=== PATIENT | male | born 1975 | race Caucasian/White ===

== ENCOUNTER 2018-03-25 16:47 | Observation (INO) | payer SELFPAY ==
[~2018-03-25] VITALS: Ht 172.7 cm; Wt 90.2 kg
[2018-03-25] MEDS ORDERED: MORPHINE 4 MG/ML 1ML VIAL/SYRINGE (J2270) IV ONE (17:45)
--- NOTE | 2018-03-25 18:10 | REP ---
Clinical: Trauma. Technique: AP and lateral views of the right forearm. Findings: Transverse fractures through the radial and ulnar shafts with foreshortening and 3 cm displaced midshaft fracture fragment is identified along with overlying soft tissue swelling. Impression: Comminuted fracture displacement of the mid radial and ulnar shafts. Electronically Signed by Ankit Daniels MD 03/25/2018 06:02 P
[2018-03-25 18:41] LABS: BASO % 0.3 % (0.0-1.0); EOS # 0.1 10^3/uL (0.0-0.50); EOS % 0.7 % (0.0-3.0); HEMATOCRIT 41.5 % (42.0-52.0); HEMOGLOBIN 14.1 g/dl (13.5-17.5); LYMPH # 1.5 10^3/uL (1.5-4.5); LYMPH % 12.3 % (24.0-44.0); MEAN CORPUSCULAR HEMOGLOBIN 28.5 pg (27.0-33.0); MEAN CORPUSCULAR VOLUME 83.8 fl (80.0-96.0); MONO # 1.1 10^3/uL (0.0-0.8); MONO % 8.8 % (0.0-5.0); NEUTROPHILS # 9.5 10^3/uL (1.8-7.7); NEUTROPHILS % 77.7 % (36.0-66.0); PLATELET COUNT, AUTOMATED 217 10^3/uL (150-450); RED BLOOD COUNT 4.95 10^6/uL (4.30-6.10); WHITE BLOOD COUNT 12.2 10^3/uL (4.0-10.0)
[2018-03-25 19:06] LABS: BLOOD UREA NITROGEN 22 MG/DL (7-18); CALCIUM LEVEL 8.7 MG/DL (8.5-10.1); CARBON DIOXIDE LEVEL 28 MEQ/L (21-32); CHLORIDE LEVEL 105 MEQ/L (98-107); GLOMERULAR FILTRATION RATE > 60.0 (>60); GLUCOSE, FASTING 104 MG/DL (70-100); SODIUM LEVEL 139 MEQ/L (136-145)
[2018-03-25] MEDS ORDERED: ONDANSETRON 4MG/2ML VIAL (J2405) IV PRN (20:15)
[2018-03-25] MEDS ORDERED: PERCOCET 5MG/325MG TAB PO PRN (20:15)
[2018-03-25] MEDS ORDERED: ACETAMINOPHEN TAB 650MG DOSE (2X325MG) PO PRN (20:15)
[2018-03-25] MEDS: PERCOCET 5MG/325MG TAB PO PRN (22:29)
[2018-03-25 23:03] VITALS: BP_SYST 116; BP_SYST 127; BP_DIAS 62; BP_DIAS 64
[2018-03-26] MEDS: PERCOCET 5MG/325MG TAB PO PRN (05:15)
[2018-03-26 05:20] VITALS: BP 132/62
[2018-03-26] MEDS ORDERED: PERC5TAB12 PO (06:31)
[2018-03-26] MEDS ORDERED: ceFAZolin 2 GM/D5W 50 ML IV BAG (J0690 PER 500MG) As Ordered ONE (08:12)
[2018-03-26] MEDS ORDERED: BUPIVACAINE/EPIN 0.5% 30 ML VIAL As Ordered ONE (11:20)
[2018-03-26] MEDS ORDERED: KETOROLAC 30 MG/ML VIAL (J1885) As Ordered ONE (11:56)
[2018-03-26] MEDS ORDERED: KETOROLAC 30 MG/ML VIAL (J1885) IV PRN (12:00)
[2018-03-26] MEDS ORDERED: PERCOCET 5MG/325MG TAB PO PRN ×3 (12:00→12:15)
[2018-03-26] MEDS ORDERED: METOCLOPRAMIDE INJ 10MG/2ML VIAL (J2765) IV PRN (12:00)
[2018-03-26] MEDS ORDERED: fentaNYL 100 MCG/2 ML INJECTION (J3010) IV PRN (12:00)
[2018-03-26] MEDS ORDERED: ONDANSETRON 4MG/2ML VIAL (J2405) IV PRN (12:00)
[2018-03-26] MEDS ORDERED: LR 1,000 ML IV SCH (12:00)
[2018-03-26] MEDS ORDERED: fentaNYL 100 MCG/2 ML INJECTION (J3010) As Ordered ONE (12:06)
[2018-03-26] MEDS ORDERED: ACETAMINOPHEN TAB 650MG DOSE (2X325MG) PO PRN (12:15)
[2018-03-26] MEDS ORDERED: PERCOCET 5MG/325MG TAB As Ordered ONE ×2 (12:22→12:30)
[2018-03-26] MEDS ORDERED: ONDANSETRON 4MG/2ML VIAL (J2405) As Ordered ONE (12:22)
--- NOTE | 2018-03-26 12:25 | REP ---
Clinical: Postoperative assessment. Technique: AP and lateral views of the right forearm. Findings: The patient is status post satisfactory open reduction and fixation for radial and ulnar shaft fractures. Small fracture fragment from the radial shaft is identified in the interosseous space. Overlying postsurgical changes noted. Impression: Open reduction and fixation for radial and ulnar diaphyseal fractures. Electronically Signed by Ankit Daniels MD 03/26/2018 12:16 P
[2018-03-26 12:45] VITALS: BP 128/71
[2018-03-26 13:15] VITALS: BP 129/74
[2018-03-26 14:15] VITALS: BP 119/59
--- NOTE | 2018-03-26 14:28 | IPNPDOC ---
Date Seen The patient was seen on 03/26/18. Progress Note Ortho post op compartment check Patient is a 42 y/o male s/p R both bone forearm ORIF earlier today. Patient examined in recovery area. States pain is well controlled on oral medications. Mild subjective numbness in fingertips but states feels "much better" than just prior to surgery. Focused exam of RUE demonstrates motor function intact in all distributions. No pain with passive stretch of fingers. Brisk capillary refill to all digits. A/P: 42 y/o male s/p ORIF R forearm doing well -Compartment exam benign -Patient may be discharged to home -Return precautions given -all questions answered VS, I&O, 24H, Fishbone Vital Signs/I&O Vital Signs Date Time Temp Pulse Resp B/P (MAP) Pulse Ox O2 Delivery O2 Flow Rate FiO2 03/26/18 13:15 16 03/26/18 13:15 98.4 61 129/74 (92) 93 Room Air I&O- Last 24 Hours up to 6 AM 03/26/18 05:59 Intake Total 270 ml Output Total 350 ml Balance -80 ml Laboratory Data 24H LABS Laboratory Tests 2 03/25/18 18:29: Immature Granulocyte % (Auto) 0.2, White Blood Count 12.2H, Red Blood Count 4.95, Hemoglobin 14.1, Hematocrit 41.5L, Mean Corpuscular Volume 83.8, Mean Corpuscular Hemoglobin 28.5, Mean Corpuscular Hemoglobin Concent 34.0, Red Cell Distribution Width 12.4, Platelet Count 217, Neutrophils (%) (Auto) 77.7H, Lymphocytes (%) (Auto) 12.3L, Monocytes (%) (Auto) 8.8H, Eosinophils (%) (Auto) 0.7, Basophils (%) (Auto) 0.3, Neutrophils # (Auto) 9.5H, Lymphocytes # (Auto) 1 .5, Monocytes # (Auto) 1.1H, Eosinophils # (Auto) 0.1, Basophils # (Auto) 0.0, Nucleated Red Blood Cells % (auto) 0.0, Anion Gap 6L, Glomerular Filtration Rate > 60.0, Blood Urea Nitrogen 22H, Creatinine 0.90, Sodium Level 139, Potassium Level 4.0, Chloride Level 105, Carbon Dioxide Level 28, Calcium Level 8.7 CBC/BMP Laboratory Tests 03/25/18 18:29 Red Blood Count 4.95, Mean Corpuscular Volume 83.8, Mean Corpuscular Hemoglobin 28.5, Mean Corpuscular Hemoglobin Concent 34.0, Red Cell Distribution Width 12.4, Neutrophils (%) (Auto) 77.7 H, Lymphocytes (%) (Auto) 12.3 L, Monocytes (%) (Auto) 8.8 H, Eosinophils (%) (Auto) 0.7, Basophils (%) (Auto) 0.3, Neutrophils # (Auto) 9.5 H, Lymphocytes # (Auto) 1.5, Monocytes # (Auto) 1.1 H, Eosinophils # (Auto) 0.1, Basophils # (Auto) 0.0, Calcium Level 8.7 FRANCE WEINER MD Mar 26, 2018 14:28
--- NOTE | 2018-03-30 11:00 | RO ---
DATE OF PROCEDURE: 03/25/2018 PREOPERATIVE DIAGNOSIS: Right both bone forearm fracture. POSTOPERATIVE DIAGNOSIS: Right both bone forearm fracture. PROCEDURE PERFORMED: Right forearm open reduction internal fixation radius and ulna. SURGEON: Dr. Dakota Andrews JOINTER SUBMARINE CABLE: Eliel Shetty ANESTHESIA PROVIDER: Dr. Champagne ANESTHESIA: General endotracheal anesthesia and local. ANTIBIOTICS: 2 grams Ancef given within 1 hour of incision. TOTAL TOURNIQUET TIME: 120 minutes at 250 mmHg right brachium. IMPLANTS: Synthes eight hole 3.5 LC/DCP plate for ulna, nine hold 3.5 LC/DCP plate for the radius. See nursing anesthesia record for specific screw sizes. ESTIMATED BLOOD LOSS: 25 mL. MATERIALS SENT TO LAB: None. COMPLICATIONS: None. INDICATIONS FOR PROCEDURE: Zia Ramos is a 42-year-old [id number] male who was in a tree cutting up logs when a log feel directly onto his right arm resulting in immediate pain and deformity. He presented to the emergency department and was found to have a displaced mid shaft both bone forearm fracture. I discussed with the patient the nature of his injury, the risks, benefits, indications, alternatives, operative versus nonoperative management and recommended right forearm open reduction internal fixation. The patient expressed understanding and provided informed consent. I counseled that I will be his operating surgeon but his followup care will be conducted by [facility]. He expressed understanding with the arrangement and agreed with the plan. INTRAOPERATIVE FINDINGS: Achieved anatomic reduction of both the radius and ulna with full pronation and supination after fixation was completed. DESCRIPTION OF OPERATION: The patient was positively identified in preop holding and surgical site was marked. He was then brought to the operating room where he was placed under general endotracheal anesthesia. He was positioned supine on a regular table with the hand in extension and all bony prominences appropriately padded. Sequential compression device (SCD) were placed on the lower extremities for deep vein thrombosis (DVT) prophylaxis. He was prepped and draped in the usual sterile fashion. A final time-out was performed. I began with fixation of the ulna and made an incision directly along the subcutaneous border of the ulna and dissected through skin and subcutaneous tissue. I explored the interval between the ECU and FCU and I dissected sharply directly down onto the ulna clearing off periosteum volarly and then cleared off fracture hematoma and was able to obtain anatomic reduction. Given the transverse nature of the fracture, I then applied an 8-hole LC/DCP plate. I placed one screw in neutral mode followed by another screw in compression mode on the opposite side of the fracture to obtain compression at the fracture site. I used mini C-arm fluoroscopic imaging to confirm anatomic reduction of the fracture. I then placed two additional screws in neutral mode both proximally and distally. I then took fluoroscopic images of the ulna, which also showed mosque of the length of the radius. At this point, I then irrigated the ulnar wound with normal saline. I closed the subcutaneous layer with buried interrupted #2-0 Vicryl suture to approximate the skin edges and then proceeded to fixation of the radius. I made a 15 cm incision centered over the fracture site starting from the FCR tendon distally, extending proximally towards the radial tuberosity. I dissected through skin and subcutaneous tissue, identified the FCR tendon sheath and the interval between the FCR and the brachioradialis superficially. I identified the radial artery and dissected it. There were two leashes of vessels crossing over the field, which I tied off with #2-0 silk ties and then exploited the interval between the brachioradialis and pronator teres proximally. I dissected directly down onto the radial shaft distally through the pronator quadratus and proximally through the pronator teres. There was a large butterfly fragment. After clearing off all fracture hematoma and interposed soft tissue, I was able to achieve anatomic reduction of butterfly fragment to the distal fragment using pointed reduction tenaculum. I then placed a single 2 mm lag by technique screw. Then using pointed reduction tenaculum, I reduced this distal fragment to the proximal fragment. I was able to obtain anatomic reduction. Given the long oblique nature of the butterfly fragment, I was able to place an additional 2.0mm lag by technique screw connecting the distal and proximal fragments, achieving significant compression at the fracture site. At this point, I then applied a nine hole LC/DCP plate in neutralization mode with three screws proximal to the fracture and three screws distal to the fracture. I used intraoperative mini C-arm fluoroscopy to confirm anatomic reduction of the fracture and mosque of anatomic radial bow. I then took the forearm through range of motion, and the patient had full pronation and supination. After taking final fluoroscopic images, I then thoroughly irrigated the radial wound with normal saline. It was closed in layers with #2-0 Vicryl in a buried fashion for the subcutaneous layer followed by running #3-0 nylon in a mattress fashion for the skin. I then closed the ulnar wound with the additional a running #3-0 nylon suture in a mattress fashion. I injected 10 mL of 0.5% Marcaine with epinephrine into each wound for local pain control. Sterile dressings were applied. Tourniquet was let down at 120 minutes. This ended the procedure. I was present for and scrubbed in for all critical portions of the case. POSTOPERATIVE PLAN: The patient will be in a well-padded volar slab splint. He be allowed a range of motion of his fingers and elbow. As long as his pain is well-controlled, he will likely be discharged to home today and will follow up in the office in 10-14 days for wound check and suture removal. ANDRE
== END 2018-03-26 14:25 | disposition home or self-care (01) ==
LOC: M ED 16:47 → M SDC 20:00 → M ED INP 20:06 → M MS4PR 22:45
PROVIDERS: ADMIT Orthopaedic Surgery; ATTEND Anesthesiology
DX: S52.351A Displaced comminuted fracture of shaft of radius, right arm, initial encounter for closed fracture (principal); W20.8XXA Other cause of strike by thrown, projected or falling object, initial encounter; Y93.H2 Activity, gardening and landscaping; Y92.007 Garden or yard of unspecified non-institutional (private) residence as the place of occurrence of the external cause; Y99.9 Unspecified external cause status
CPT/HCPCS: 25575; 73090; 80048; 85025; 96374; 99284; C1713; J0690; J1885; J2270; J2405